=== PATIENT | female | born 1995 | race Two or more races ===

== ENCOUNTER 2020-11-17 21:23 | Emergency (ER) | payer MEDICAID, OTHER ==
[~2020-11-17] VITALS: Ht 162.6 cm; Wt 75.0 kg
--- NOTE | 2020-11-17 21:44 | NUR ---
EULALIO FROM HOME FOR INCREASE IN VAGINAL BLEEDING, CRAMPING, AND N/V. PT REPORTS SEEN AT [facility] TODAY. 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 DR. RICH AT BEDSIDE FOR EVAL.
[2020-11-17] MEDS ORDERED: FENTANYL PF 100 MCG/2ML ONE (21:49)
[2020-11-17] MEDS ORDERED: SODIUM CHLORIDE 0.9% 1,000ML IVBOLUS ONE (22:00)
[2020-11-17] MEDS ORDERED: METHYLERGONOVINE 0.2 MG/ML IM ONE (22:00)
--- NOTE | 2020-11-17 22:17 | NUR ---
5OMCG IV FENTANYL ADMINISTERD PER MD ORDER.
[2020-11-17 22:30] LABS: BASOPHILS % (AUTO) 0 % (0-1); EOSINOPHILS % (AUTO) 0 % (1-7); LYMPHOCYTES % (AUTO) 16 % (22-44); MD NO; MEAN CORPUSCULAR HEMOGLOBIN 30.7 pg (27.0-34.8); MEAN CORPUSCULAR HGB CONC 34.4 g/dL (32.4-35.8); MONOCYTES % (AUTO) 3 % (2-9); NEUTROPHILS % (AUTO) 80 % (42-75); PLATELET COUNT 184 x10^3/uL (130-400); RED BLOOD COUNT 3.15 x10^6/uL (3.82-5.3); RED CELL DISTRIBUTION WIDTH 12.9 % (9.6-15.2)
--- NOTE | 2020-11-17 22:36 | NUR ---
DR. LABOY AT BEDSIDE FOR EVAL.
[2020-11-17 22:56] LABS: ALBUMIN 2.6 g/dL (3.4-5.0); ANION GAP 4 mmol/L (5-15); CALCIUM 7.2 mg/dL (8.5-10.1); CHLORIDE 113 mmol/L (98-107)
--- NOTE | 2020-11-17 23:18 | NUR ---
REPORT TO DANIELLE LABOY.
--- NOTE | 2020-11-18 00:13 | NUR ---
LATE ENTRY: REPORT FROM DORIS RN. PT GIVEN SUPPLIES TO CLEAN HERSELF AND CLEAN GOWN AND UNDERWEAR. PT ALSO GIVEN WATER. PT STILL FELING LIGHT HEADED WHEN SITTING AND STANDING. VS IMPROVED. WILL CONTINUE TO MONITOR. SO AT BEDSIDE
--- NOTE | 2020-11-18 02:10 | NUR ---
ATTEMPTED TO AMBULAT PT. PT FELT DIZZY AND SAT DOWN. PT ASSISTED BACK TO BED. VSS. UPDATE. REPEAT LABS ORDERED. PT UPDATED ON POC. PT HAS NO OTHER NEEDS AT THIS TIME.
[2020-11-18 02:38] LABS: BASOPHILS % (AUTO) 0 % (0-1); EOSINOPHILS % (AUTO) 0 % (1-7); LYMPHOCYTES % (AUTO) 41 % (22-44); MEAN CORPUSCULAR HGB CONC 34.7 g/dL (32.4-35.8); MEAN PLATELET VOLUME 7.9 fL (7.4-10.4); MONOCYTES % (AUTO) 3 % (2-9); NEUTROPHILS % (AUTO) 56 % (42-75); PLATELET COUNT 189 x10^3/uL (130-400); RED BLOOD COUNT 3.01 x10^6/uL (3.82-5.3)
[2020-11-18 02:48] LABS: MD NO
--- NOTE | 2020-11-18 03:25 | NUR ---
PT GIVEN MORE WATER AND SNACKS. VSS. CALL LIGHT IN REACH
--- NOTE | 2020-11-18 04:32 | NUR ---
PT AMBULATED WITH A STEADY GAIT. PIV REMOVED. PT VERBALIZED UNDERSTANDING OF DISCHARGE INSTRUCTIONS AND LEFT WITH SPOUSE.
[2020-11-18 04:34] VITALS: BP 96/53
== END 2020-11-18 04:39 | disposition home or self-care (01) ==
LOC: ED 23:21
DX: O03.9 Complete or unspecified spontaneous abortion without complication (principal); R55 Syncope and collapse; Z3A.12 12 weeks gestation of pregnancy
CPT/HCPCS: 36415; 76801; 80048; 82040; 84702; 85025; 86850; 86900; 88305; 93005; 96360; 96372; 99291; J2210; J7030